=== PATIENT | female | born 1995 | race Hispanic/Latino ===

== ENCOUNTER 2016-10-19 10:37 | Inpatient (IN) | payer OTHER ==
[2016-10-19] MEDS: PRENATAL VITAMIN TAB PO SCH (09:00)
[2016-10-19] MEDS ORDERED: OXYTOCIN 30 UNITS IN 0.9% NaCl 500ML IV BAG (J2590) As Ordered ONE (11:10)
[2016-10-19] MEDS: LR 1,000 ML IV SCH ×2 (11:49→19:49)
[2016-10-19] MEDS ORDERED: OXYTOCIN DRIP 30 UNITS in APPROPRIATE DILUENT 1 EA IV SCH (11:49)
[2016-10-19 11:57] VITALS: BP 118/66
[2016-10-19] MEDS ORDERED: MEASLES,MUMPS,RUBELLA VACCINE INJ (MMR-II) (90707) SC SCH (12:00)
[2016-10-19] MEDS ORDERED: DOCUSATE SODIUM 100 MG CAP PO PRN (12:00)
[2016-10-19] MEDS ORDERED: DIBUCAINE 1% OINTMENT 30GM TOP PRN (12:00)
[2016-10-19] MEDS ORDERED: LIDOCAINE 1% MDV INJ 50 ML VIAL INFIL ONE (12:00)
[2016-10-19] MEDS ORDERED: RHOGAM 300 MCG (1500 IU) INJ (J2790) IM SCH (12:00)
[2016-10-19] MEDS ORDERED: ACETAMINOPHEN 500 MG TAB PO PRN (12:00)
[2016-10-19] MEDS ORDERED: PROMETHAZINE 25 MG TAB PO PRN (12:00)
[2016-10-19] MEDS ORDERED: METOCLOPRAMIDE INJ 10MG/2ML VIAL (J2765) IV PRN (12:00)
[2016-10-19 12:03] VITALS: BP 121/64
[2016-10-19 12:18] VITALS: BP 129/80
[2016-10-19 12:33] VITALS: BP 119/73
[2016-10-19] MEDS: IBUPROFEN 800 MG TAB PO PRN ×2 (12:33→23:00)
[2016-10-19 14:47] VITALS: BP 137/56
[2016-10-19 18:00] VITALS: BP 118/61
[2016-10-20] MEDS: LR 1,000 ML IV SCH ×3 (03:49→19:49)
[2016-10-20 05:30] VITALS: BP 111/64
[2016-10-20] MEDS: PRENATAL VITAMIN TAB PO SCH (07:50)
[2016-10-20] MEDS: IBUPROFEN 800 MG TAB PO PRN ×2 (07:52→17:55)
[2016-10-20 18:02] VITALS: BP 109/57
[2016-10-21] MEDS: LR 1,000 ML IV SCH (03:49)
[2016-10-21 05:36] VITALS: BP 101/50
[2016-10-21] MEDS: IBUPROFEN 800 MG TAB PO PRN (07:39)
[2016-10-21] MEDS: PRENATAL VITAMIN TAB PO SCH (07:39)
[2016-10-21] MEDS ORDERED: ACET50TA PO (07:51)
[2016-10-21] MEDS ORDERED: IBUP-1114 PO (07:51)
[2016-10-21] MEDS ORDERED: PRENTAB9 PO (07:51)
== END 2016-10-21 11:30 | disposition home or self-care (01) | DRG 560 ==
LOC: M LDO 10:37 → M LDI 10:57 → M OBS 13:56
PROVIDERS: ADMIT Obstetrics & Gynecology; ATTEND Obstetrics & Gynecology
PROC: 10E0XZZ Delivery of Products of Conception, External Approach (ICD-10-PCS; principal; 2016-10-19)
PROC: 0KQM0ZZ Repair Perineum Muscle, Open Approach (ICD-10-PCS; 2016-10-19)
DX: O70.1 Second degree perineal laceration during delivery (principal); Z3A.38 38 weeks gestation of pregnancy; Z37.0 Single live birth